=== PATIENT | female | born 1975 | race Caucasian/White ===

== ENCOUNTER 2019-06-26 06:43 | Day surgery (SDC) | payer MEDICAID ==
[2019-06-19 13:52] LABS: BASOPHILS # (AUTO) 0.1 X10'3 (0-0.2); EOSINOPHILS # (AUTO) 0.2 X10'3 (0-0.9); EOSINOPHILS % (AUTO) 2.9 % (0-6); LYMPHOCYTES % (AUTO) 27.7 % (21-51); MEAN CORPUSCULAR HEMOGLOBIN 30.7 PG (27.0-31.0); MEAN CORPUSCULAR HGB CONC 33.9 g/dL (33.0-36.5); MEAN CORPUSCULAR VOLUME 90.6 FL (78-98); MEAN PLATELET VOLUME 7.6 FL (7.4-10.4); MONOCYTES # (AUTO) 0.5 X10'3 (0-0.9); MONOCYTES % (AUTO) 6.5 % (2-12); NEUTROPHILS # (AUTO) 4.4 X10'3 (1.8-7.7); NEUTROPHILS % (AUTO) 61.9 % (42-75); PRE OP HEMATOCRIT 39.7 % (35.0-45.0); PRE OP HEMOGLOBIN 13.5 g/dL (12.0-16.0); PRE OP PLATELET COUNT 281 X10'3 (140-440); RED BLOOD COUNT 4.39 X10'6 (4.20-5.60); RED CELL DISTRIBUTION WIDTH 14.3 % (11.5-14.5)
[2019-06-19 14:07] LABS: ALBUMIN 3.9 G/DL (3.4-5.0); ALKALINE PHOSPHATASE 67 IU/L (46-116); BLOOD UREA NITROGEN 17 MG/DL (7-18); BUN/CREATININE RATIO 15.2 (6.6-38.0); CALCIUM 9.1 MG/DL (8.5-10.1); CHLORIDE 108 MMOL/L (99-107); CREATININE 1.12 MG/DL (0.40-0.90); PRE OP ALT 34 U/L (30-65); PRE OP ANION GAP 14 (8-16); PRE OP AST 24 U/L (10-37); PRE OP BILIRUB, TOTAL 0.2 MG/DL (0.0-1.0); PRE OP GLUCOSE 120 MG/DL (70-104); PRE OP POTASSIUM 3.6 MMOL/L (3.4-5.1); PRE OP SODIUM 143 MMOL/L (135-145); eGFR 53 ML/MIN
[~2019-06-26] VITALS: Ht 154.9 cm; Wt 82.3 kg
[~2019-06-26 06:43] MED LIST: CLOZ100T PO; CLOZ100T31 PO; FENO134C PO; FLUO20CA39 PO; HYDR-3686 PO; LEVO75TA PO; PRAM0.253 PO; SIMV20TA5 PO; TOP100T PO; albuterol 2.5 MG/3 ML nebule NEB ONE; cefazolin/dext.iso 2gm/50ml 50 ML IV ONE; famotidine 20mg tablet PO ONE; ringers solution, lacted 1,000 ML IV SCH
[2019-06-26 06:50] VITALS: BP 111/76
[2019-06-26] MEDS ORDERED: LIDOcaine 0.5% (5mg/ml) 50ml vial ONE (07:12)
[2019-06-26] MEDS ORDERED: ringers solution, lacted 1,000 ML IV SCH (07:48)
[2019-06-26] MEDS ORDERED: proCHLORperazine 10 MG/2 ml inj IV PRN (07:50)
[2019-06-26] MEDS ORDERED: ondansetron/PF 4mg/2ml inj IV PRN (07:50)
[2019-06-26] MEDS ORDERED: morphine 4 MG/ML inj SYRINge IV PRN ×2 (07:50)
[2019-06-26] MEDS ORDERED: meperidine/PF 25mg/ml syringe IV PRN ×3 (07:50)
[2019-06-26] MEDS ORDERED: midazolam 2 mg/2 ml injection ONE ×2 (09:25→09:26)
[2019-06-26] MEDS ORDERED: fentaNYL/PF 50MCG/1 ML 2ML syringe ONE (09:26)
[2019-06-26] MEDS ORDERED: propofol 10mg/ml 20ml vial IV ONE (09:28)
[2019-06-26] MEDS ORDERED: BUPIVAcaine/PF 2.5mg/ml (0.25%) 10ml vial ONE (09:33)
[2019-06-26 10:03] VITALS: BP 100/49
--- NOTE | 2019-06-26 10:03 | NUR ---
Received from OR via , accompanied by Anesthesiologist DR JORDAN and report given by Anesthesiolgist. AWAKENS TO VOICE. VITALS STABLE, DRESSING DI. APRIL PAIN. FINGERS WARM AND PINK.
[2019-06-26 10:13] VITALS: BP 120/81
[2019-06-26 10:23] VITALS: BP 112/77
[2019-06-26 10:33] VITALS: BP 118/74
--- NOTE | 2019-06-26 10:33 | NUR ---
AWAKE AND ORIENTED. VITALS STABLE. DRESSING DI. APRIL PAIN. HOME WITH A FRIEND AT THIS TIME.
== END 2019-06-26 10:33 | disposition home or self-care (01) ==
LOC: PAS 06:43
PROVIDERS: ATTEND Orthopaedic Surgery Hand Surgery
PROC: 01N54ZZ Release Median Nerve, Percutaneous Endoscopic Approach (ICD-10-PCS; 2019-06-26)
PROC: 0RBS0ZZ Excision of Right Carpometacarpal Joint, Open Approach (ICD-10-PCS; principal; 2019-06-26 09:28)
DX: G56.01 Carpal tunnel syndrome, right upper limb (principal); M67.431 Ganglion, right wrist; M25.731 Osteophyte, right wrist
CPT/HCPCS: 26160; 29848; 36415; 80053; 85025; J2001; J2250; J2704; J3010; J3490; A4215; A4615; A6449; A7000; J7120

== ENCOUNTER 2019-07-24 07:27 | Day surgery (SDC) | payer MEDICAID ==
[~2019-07-24] VITALS: Ht 154.9 cm; Wt 81.6 kg
[~2019-07-24 07:27] MED LIST changes: +SIMV-42 PO; -SIMV20TA5 PO; -albuterol 2.5 MG/3 ML nebule NEB ONE; -famotidine 20mg tablet PO ONE; -ringers solution, lacted 1,000 ML IV SCH
[2019-07-24] MEDS ORDERED: LIDOcaine 0.5% (5mg/ml) 50ml vial ONE (07:30)
[2019-07-24 07:40] VITALS: BP 117/77
[2019-07-24] MEDS ORDERED: ringers solution, lacted 1,000 ML IV SCH (08:15)
[2019-07-24] MEDS ORDERED: cefazolin/dext.iso 2gm/100 ML IV ONE (08:15)
[2019-07-24] MEDS ORDERED: famotidine 20mg tablet PO ONE (08:15)
[2019-07-24 08:51] LABS: ALKALINE PHOSPHATASE 64 IU/L (46-116); BLOOD UREA NITROGEN 20 MG/DL (7-18); BUN/CREATININE RATIO 20.6 (6.6-38.0); CHLORIDE 109 MMOL/L (99-107); CREATININE 0.97 MG/DL (0.40-0.90); PRE OP ALT 31 U/L (30-65); PRE OP ANION GAP 11 (8-16); PRE OP AST 27 U/L (10-37); PRE OP BILIRUB, TOTAL 0.2 MG/DL (0.0-1.0); PRE OP GLUCOSE 107 MG/DL (70-104); PRE OP SODIUM 140 MMOL/L (135-145); TOTAL CARBON DIOXIDE 19.6 MMOL/L (24-32); TOTAL PROTEIN 8.1 G/DL (6.4-8.2); eGFR 63 ML/MIN
[2019-07-24] MEDS ORDERED: fentaNYL/PF 50MCG/1 ML 2ML syringe ONE (09:25)
[2019-07-24] MEDS ORDERED: midazolam 2 mg/2 ml injection ONE ×2 (09:26→10:22)
[2019-07-24] MEDS ORDERED: BUPIVAcaine/PF 2.5 mg/ml (0.25%) 30ml vial ONE (09:55)
[2019-07-24 10:17] LABS: PRE OP INR 0.9 INR; PRE OP PROTIME 9.7 SECONDS (9.0-12.0)
[2019-07-24 10:46] VITALS: BP 130/78
--- NOTE | 2019-07-24 10:46 | NUR ---
Received from OR via [facility] , accompanied by Anesthesiologist HERBERTH and report given by Anesthesiolgist. PATIENT WITH 20G PIV IN RIGHT UE RUNNING LR AT 100. DENIES PAIN. MOVES ALL FINGERS ON LEFT UE. SPLINT IS CDI. VSS. Addendum: 07/24/19 at 1055 by Sudheer Griffith RN, RN Amended: Links added.
[2019-07-24 10:56] VITALS: BP 125/76
[2019-07-24 11:06] VITALS: BP 110/62
--- NOTE | 2019-07-24 11:16 | NUR ---
ALL DC CRITERIA HAS BEEN MET. IV TAKEN OUT WITHOUT COMPLICATIONS. ALL INSTRUCTIONS COVERED AND ALL QUESTIONS ANSWERED. DRESSINGS CDI. OUT VIA WHEELCHAIR TO PERSONAL VEHICLE WHERE PATIENT WAS SECURED IN AND DRIVEN HOME BY FAMILY. PATIENT EAT, DRANK AND DRESSED HERSELF INDEPENDENTLY. ALL CRITERIA HAS BEEN MET FOR DC. Addendum: 07/24/19 at 1121 by Sudheer Griffith RN, RN Amended: Links added.
== END 2019-07-24 11:16 | disposition home or self-care (01) ==
LOC: PAS 07:27 → EDUNIT# 10:15 → PAS 11:16
PROVIDERS: ATTEND Orthopaedic Surgery Hand Surgery
DX: G56.02 Carpal tunnel syndrome, left upper limb (principal); M25.732 Osteophyte, left wrist; F32.9 Major depressive disorder, single episode, unspecified; F41.9 Anxiety disorder, unspecified; F43.10 Post-traumatic stress disorder, unspecified; E03.9 Hypothyroidism, unspecified; E66.9 Obesity, unspecified; Z68.34 Body mass index [BMI] 34.0-34.9, adult; Z86.19 Personal history of other infectious and parasitic diseases; Z90.710 Acquired absence of both cervix and uterus; Z87.891 Personal history of nicotine dependence; Z88.8 Allergy status to other drugs, medicaments and biological substances; Z79.899 Other long term (current) drug therapy; Z98.890 Other specified postprocedural states; Z79.01 Long term (current) use of anticoagulants
CPT/HCPCS: 25130; 29848; 36415; 80053; 85610; 85730; A6222; J2001; J2250; J3010; J3490; 93005; A4215; A6449; J7120

== ENCOUNTER 2020-11-08 07:52 | Inpatient (IN) | payer MEDICAID ==
[2020-11-02 16:47] LABS: MEAN CORPUSCULAR HEMOGLOBIN 32.4 PG (27.0-31.0); MEAN CORPUSCULAR VOLUME 93.7 FL (78-98)
[2020-11-02 16:48] LABS: BASOPHILS # (AUTO) 0.1 X10'3 (0-0.2); BASOPHILS % (AUTO) 0.8 % (0-1); EOSINOPHILS # (AUTO) 0.2 X10'3 (0-0.9); EOSINOPHILS % (AUTO) 3.1 % (0-6); LYMPHOCYTES # (AUTO) 2.1 X10'3 (1.1-4.8); LYMPHOCYTES % (AUTO) 30.2 % (21-51); MEAN CORPUSCULAR HGB CONC 34.6 g/dL (33.0-36.5); MEAN PLATELET VOLUME 8.3 FL (7.4-10.4); MONOCYTES # (AUTO) 0.6 X10'3 (0-0.9); MONOCYTES % (AUTO) 8.5 % (2-12); NEUTROPHILS % (AUTO) 57.4 % (42-75); PRE OP HEMATOCRIT 37.9 % (35.0-45.0); PRE OP HEMOGLOBIN 13.1 g/dL (12.0-16.0); PRE OP PLATELET COUNT 258 X10'3 (140-440); RED BLOOD COUNT 4.04 X10'6 (4.20-5.60); RED CELL DISTRIBUTION WIDTH 13.7 % (11.5-14.5)
[2020-11-02 17:08] LABS: ALBUMIN 3.9 G/DL (3.4-5.0); ALBUMIN/GLOBULIN RATIO 1.1 (1.1-1.5); ALKALINE PHOSPHATASE 92 IU/L (46-116); BLOOD UREA NITROGEN 16 MG/DL (7-18); BUN/CREATININE RATIO 16.3 (6.6-38.0); CALCIUM 9.3 MG/DL (8.5-10.1); CHLORIDE 106 MMOL/L (99-107); CREATININE 0.98 MG/DL (0.40-0.90); PRE OP ALT 49 U/L (30-65); PRE OP ANION GAP 14 (8-16); PRE OP AST 29 U/L (10-37); PRE OP BILIRUB, TOTAL 0.2 MG/DL (0.0-1.0); PRE OP POTASSIUM 3.5 MMOL/L (3.4-5.1); PRE OP SODIUM 141 MMOL/L (135-145); TOTAL CARBON DIOXIDE 20.8 MMOL/L (24-32); TOTAL PROTEIN 7.5 G/DL (6.4-8.2); eGFR 62 ML/MIN
[2020-11-02 17:10] LABS: PRE OP GLUCOSE 123 MG/DL (70-104)
[~2020-11-08] VITALS: Ht 154.9 cm; Wt 92.1 kg
[2020-11-08] VITALS (25 sets, daily range): BP systolic 97–131; BP diastolic 53–88
[~2020-11-08 07:52] MED LIST changes: +DICL50TA8 PO; -HYDR-3686 PO; +HYDR-3965 PO; -PRAM0.253 PO; +ceFAZolin 2gm in dextrose, iso 50 ML IV ONE; -cefazolin/dext.iso 2gm/50ml 50 ML IV ONE; +famotidine 20mg tablet PO ONE; +ringers solution, lacted 1,000 ML IV SCH; +tranexamic acid 650mg tablet PO ONE; +vancomycin 1,500 MG in NS 300ml IV soln IV ONE
[2020-11-08] MEDS ORDERED: LIDOcaine 1% (10mg/ml) 2ml vial ONE (08:22)
[2020-11-08] MEDS ORDERED: hydrOXYzine 25 MG tablet PO ONE (12:05)
[2020-11-08] MEDS ORDERED: ROPIVAcaine inj 200 MG in normal saline 100ml IV soln 60 ML IU ONE (12:35)
[2020-11-08] MEDS ORDERED: sevoflurane 250ml liquid IH ONE (13:25)
[2020-11-08] MEDS ORDERED: fentaNYL/PF 50MCG/1 ML 2ML syringe ONE (13:38)
[2020-11-08] MEDS ORDERED: propofol inj 20 ML IV ONE (13:48)
[2020-11-08] MEDS ORDERED: diphenhydrAMINE 50 mg/ml inj ONE (13:48)
[2020-11-08] MEDS ORDERED: ROPIVAcaine 0.5% (5mg/ml) 30ml vial IJ ONE (14:49)
[2020-11-08] MEDS ORDERED: gelatin sponge, absorbable (Gelfoam 100) sponge TP ONE ×2 (15:33→15:34)
[2020-11-08] MEDS ORDERED: ROPIVAcaine 0.5% (5mg/ml) 30ml vial ONE (15:38)
[2020-11-08] MEDS ORDERED: albumin (Human) 5% 250ml 250 ML IV ONE (15:39)
[2020-11-08] MEDS ORDERED: bisacodyl 10mg suppository rectal RC PRN (16:20)
[2020-11-08] MEDS ORDERED: magnesium hydroxide 30ml (MOM) UD suspension PO PRN (16:20)
[2020-11-08] MEDS ORDERED: diphenhydrAMINE 25mg capsule PO PRN ×2 (16:20)
[2020-11-08] MEDS ORDERED: acetaminophen 325mg tablet PO PRN (16:20)
[2020-11-08] MEDS ORDERED: oxyCODONE IR 5mg (immed. release) tablet PO PRN (16:20)
[2020-11-08] MEDS ORDERED: HYDROcodone/acetaminophen 5mg/325mg tablet PO PRN (16:20)
[2020-11-08] MEDS ORDERED: HYDROmorphone inj. 0.5 MG/0.5 ML DISP.SYRIN IV PRN (16:20)
[2020-11-08] MEDS ORDERED: ondansetron/PF 4mg/2ml inj IV PRN ×2 (16:20→17:55)
--- NOTE | 2020-11-08 16:55 | NUR ---
Received from OR via , accompanied by Anesthesiologist DR MELLO and report given by Anesthesiolgist. PT IS SLEEPING BUT WAKES TO VOICE. SKIN WARM AND PINK, VSS, MOVES EXT X 4, DOPPLE PEDAL PULSES, DRESSING TO LEFT KNEE CD, POWDER ICE PACK TO LEFT KNEE, SCD'S, PIV LEFT FA 18G PATENT WITH LR 100ML/HR, WAITING FOR PHARMACY TO BRING UP ON Q PAIN BALL, ESPINAL TO GRAVITY, CLEAR YELLOW.
[2020-11-08] MEDS ORDERED: morphine 4 MG/ML inj SYRINge ONE (17:52)
[2020-11-08] MEDS ORDERED: morphine 2 MG/ML inj. syringe IV PRN (17:55)
[2020-11-08] MEDS ORDERED: ringers solution, lacted 1,000 ML IV SCH (17:55)
[2020-11-08] MEDS ORDERED: proCHLORperazine 10 MG/2 ml inj IV PRN (17:55)
[2020-11-08] MEDS ORDERED: ROPIVAcaine 0.2% (10 MG/5 ML) BOLUS INJECTION ADDCANAL PRN (17:55)
[2020-11-08] MEDS ORDERED: meperidine/PF 25mg/ml syringe IV PRN ×3 (17:55)
--- NOTE | 2020-11-08 17:55 | NUR ---
HAD TO OVERIDE MORPHINE FOR C/O SEVERE PAIN. PAIN MEDICATIONS HAD NOT BEEN ENTERED BY ANESTHESIA. CALLED DR MELLO AND OKAYED OVER RIDE. DR MELLO THEN PLACED PAIN MEDICATIONS IN EMAR.
[2020-11-08] MEDS: morphine 4 MG/ML inj SYRINge IV PRN ×2 (18:17→18:56)
[2020-11-08] MEDS: ROPIVAcaine 0.2%/PF PUMP/bolus 550 ML ADDCANAL SCH (18:18)
--- NOTE | 2020-11-08 18:20 | NUR ---
REPORT GIVEN AND CARE TRANSFERRED TO VAHE ISRAEL.
--- NOTE | 2020-11-08 19:10 | NUR ---
PATIENT A&OX4, PAINFUL 8/10 PER PT, PT IS ABLE TO FEEL SENSATIONS IN AFFECTED LEG IN SPITE OF BLOCK-ANESTHESIA AWARE, ON-Q PUMP HAS BEEN INCREASED AND BOLUSES GIVEN TO ATTEMPT TO HELP WITH PAIN, ALSO HAVE BEEN GIVEN 4MG MORPHINE DOSES X 3, PEDAL PULSES WERE FOUND VIA DOPPLER IN HER TIBIAL AREA, TOES PINK, WARM AND + FOR SENSATION, V/S WNL, PIV 20G TO L FA-LR RUNNING, PT GIVEN JUICE AND CRACKERS WHILE IN RECOVERY, NEUROVASCULAR CHECKS INTACT, , DRESSING TO LEFT KNEE W/ COLD POWDER PACK ,SCD ON. F/C DRAINING CLEAR YELLOW URINE. PATIENT TAKEN TO RM 4023A WITH ALL BELONGINGS AND HOOKED UP TO MONITORS IN ROOM AND REPORT GIVEN TO [employer]YWOOD PATCHER DECEMBER WHO HAS TAKEN OVER PATIENT CARE. BED LOW, CALL LIGHT PRESENT AND VSS.
[2020-11-08] MEDS ORDERED: topiramate 100mg tablet PO SCH (20:00)
[2020-11-08] MEDS ORDERED: vancomycin/NS 1 GM ADD-VANTAGE 250 ML IV SCH (20:00)
[2020-11-08] MEDS: DICLOFENAC 50 MG PO SCH (20:00)
[2020-11-08 20:21] LABS: BASOPHILS % (AUTO) 0.3 % (0-1); EOSINOPHILS % (AUTO) 0.4 % (0-6); HEMATOCRIT 34.1 % (35.0-45.0); HEMOGLOBIN 11.6 g/dl (12.0-16.0); LYMPHOCYTES # (AUTO) 0.6 X10'3 (1.1-4.8); LYMPHOCYTES % (AUTO) 5.9 % (21-51); MEAN CORPUSCULAR HEMOGLOBIN 32.5 PG (27.0-31.0); MEAN CORPUSCULAR VOLUME 95.6 FL (78-98); MEAN PLATELET VOLUME 7.8 FL (7.4-10.4); MONOCYTES # (AUTO) 0.1 X10'3 (0-0.9); MONOCYTES % (AUTO) 1.2 % (2-12); NEUTROPHILS # (AUTO) 9.9 X10'3 (1.8-7.7); NEUTROPHILS % (AUTO) 92.2 % (42-75); PLATELET COUNT 185 X10'3 (140-440); RED BLOOD COUNT 3.57 X10'6 (4.20-5.60); RED CELL DISTRIBUTION WIDTH 14.2 % (11.5-14.5); WHITE BLOOD COUNT 10.7 X10'3 (4.5-11.0)
[2020-11-08] MEDS: topiramate 100mg tablet PO SCH (20:44)
[2020-11-08] MEDS: acetaminophen 325mg tablet PO SCH (20:44)
[2020-11-08] MEDS: sennosides 8.6mg tablet PO SCH (20:47)
[2020-11-08] MEDS: atorvastatin 10mg tablet PO SCH (20:47)
[2020-11-08] MEDS: potassium cl 20mEq in 1/2 NS 1,000 ML IV SCH (21:00)
[2020-11-08] MEDS: oxyCODONE IR 5mg (immed. release) tablet PO PRN (21:56)
[2020-11-08] MEDS: clozapine 100mg tablet PO SCH (21:57)
[2020-11-08] MEDS: ceFAZolin/D5W- 1GM premix 50 ML IV SCH (23:35)
[2020-11-09] MEDS: potassium cl 20mEq in 1/2 NS 1,000 ML IV SCH ×3 (00:20→16:20)
[2020-11-09 02:00] VITALS: BP 105/61
[2020-11-09] MEDS: acetaminophen 325mg tablet PO SCH ×4 (02:00→21:12)
[2020-11-09] MEDS: oxyCODONE IR 5mg (immed. release) tablet PO PRN ×2 (05:30→09:41)
--- NOTE | 2020-11-09 06:24 | NUR ---
Received report from Jayshree RN
[2020-11-09 06:49] VITALS: BP 102/68
[2020-11-09 07:46] LABS: BASOPHILS % (AUTO) 0.1 % (0-1); EOSINOPHILS % (AUTO) 0 % (0-6); HEMATOCRIT 32.3 % (35.0-45.0); HEMOGLOBIN 10.8 g/dl (12.0-16.0); LYMPHOCYTES # (AUTO) 0.9 X10'3 (1.1-4.8); LYMPHOCYTES % (AUTO) 7.5 % (21-51); MEAN CORPUSCULAR HEMOGLOBIN 32.2 PG (27.0-31.0); MEAN CORPUSCULAR HGB CONC 33.4 g/dL (33.0-36.5); MEAN CORPUSCULAR VOLUME 96.6 FL (78-98); MEAN PLATELET VOLUME 8.2 FL (7.4-10.4); MONOCYTES # (AUTO) 0.5 X10'3 (0-0.9); MONOCYTES % (AUTO) 4.4 % (2-12); NEUTROPHILS # (AUTO) 10.2 X10'3 (1.8-7.7); PLATELET COUNT 202 X10'3 (140-440); RED BLOOD COUNT 3.35 X10'6 (4.20-5.60); RED CELL DISTRIBUTION WIDTH 14.1 % (11.5-14.5); WHITE BLOOD COUNT 11.6 X10'3 (4.5-11.0)
[2020-11-09] MEDS: DICLOFENAC 50 MG PO SCH ×2 (08:00→20:00)
[2020-11-09] MEDS ORDERED: levoTHYROXINE 75mcg tablet PO SCH (08:00)
[2020-11-09 08:01] LABS: ANION GAP 12 (8-16); CHLORIDE 109 MMOL/L (99-107); POTASSIUM 3.8 MMOL/L (3.5-5.1); SODIUM 139 MMOL/L (135-145); TOTAL CARBON DIOXIDE 18.3 MMOL/L (24-32)
[2020-11-09] MEDS: FLUoxetine 20mg capsule PO SCH (09:06)
[2020-11-09] MEDS: fenofibrate 145mg tablet PO SCH (09:07)
[2020-11-09] MEDS: aspirin 325mg tablet PO SCH (09:09)
[2020-11-09] MEDS: clozapine 100mg tablet PO SCH ×2 (09:09→21:12)
[2020-11-09] MEDS: ceFAZolin/D5W- 1GM premix 50 ML IV SCH (09:12)
[2020-11-09] MEDS: topiramate 100mg tablet PO SCH ×2 (09:12→21:11)
--- NOTE | 2020-11-09 09:15 | NUR ---
Medications reviewed, dispensed, administered, and documented appropriately by Gaurav SANCHEZ.
[2020-11-09 10:00] VITALS: BP 133/85
--- NOTE | 2020-11-09 10:30 | NUR ---
Joint Replacement Consult: Pt seen by RIYA for written/verbal high protein ed w/ RD contact information provided. Pt reports good appetite requesting double proteins TIDWM for satiety; dietary notified. Addendum: 11/09/20 at [address] Amended: Links added.
[2020-11-09] MEDS ORDERED: oxyCODONE IR 5mg (immed. release) tablet PO PRN (11:20)
[2020-11-09] MEDS: HYDROmorphone 1 mg/ml syringe IV PRN ×3 (12:13→22:15)
[2020-11-09 18:00] VITALS: BP 124/73
--- NOTE | 2020-11-09 18:03 | NUR ---
Report given to Princess ISRAEL
--- NOTE | 2020-11-09 19:50 | NUR ---
Patient in room ORTHO 4024. I have received report from Princess ISRAEL and had the opportunity to ask questions and assume patient care.
[2020-11-09] MEDS: sennosides 8.6mg tablet PO SCH (21:10)
[2020-11-09] MEDS: atorvastatin 10mg tablet PO SCH (21:10)
[2020-11-09 22:00] VITALS: BP 109/66
[2020-11-10] MEDS: potassium cl 20mEq in 1/2 NS 1,000 ML IV SCH ×2 (00:20→07:56)
[2020-11-10] MEDS: acetaminophen 325mg tablet PO SCH ×3 (01:07→14:00)
[2020-11-10] MEDS: ROPIVAcaine 0.2%/PF PUMP/bolus 550 ML ADDCANAL SCH (01:08)
[2020-11-10] MEDS: oxyCODONE IR 5mg (immed. release) tablet PO PRN ×5 (01:08→19:14)
[2020-11-10 02:00] VITALS: BP 109/68
[2020-11-10 06:00] VITALS: BP 117/71
--- NOTE | 2020-11-10 06:00 | NUR ---
Patient in room ORTHO 4024. I have received report from Roxanna and had the opportunity to ask questions and assume patient care.
--- NOTE | 2020-11-10 06:27 | NUR ---
Problems reprioritized. Patient report given, questions answered & plan of care reviewed with Kamille ISRAEL.
[2020-11-10 07:38] LABS: BASOPHILS % (AUTO) 0.3 % (0-1); EOSINOPHILS # (AUTO) 0.2 X10'3 (0-0.9); EOSINOPHILS % (AUTO) 2.2 % (0-6); HEMATOCRIT 28.8 % (35.0-45.0); HEMOGLOBIN 9.7 g/dl (12.0-16.0); LYMPHOCYTES # (AUTO) 1.7 X10'3 (1.1-4.8); LYMPHOCYTES % (AUTO) 18.1 % (21-51); MEAN CORPUSCULAR HEMOGLOBIN 32.5 PG (27.0-31.0); MEAN CORPUSCULAR HGB CONC 33.6 g/dL (33.0-36.5); MEAN CORPUSCULAR VOLUME 96.7 FL (78-98); MEAN PLATELET VOLUME 8.2 FL (7.4-10.4); MONOCYTES # (AUTO) 0.8 X10'3 (0-0.9); MONOCYTES % (AUTO) 8.6 % (2-12); NEUTROPHILS # (AUTO) 6.8 X10'3 (1.8-7.7); NEUTROPHILS % (AUTO) 70.8 % (42-75); PLATELET COUNT 175 X10'3 (140-440); RED BLOOD COUNT 2.98 X10'6 (4.20-5.60); WHITE BLOOD COUNT 9.6 X10'3 (4.5-11.0)
[2020-11-10] MEDS: topiramate 100mg tablet PO SCH ×2 (07:46→20:56)
[2020-11-10] MEDS: aspirin 325mg tablet PO SCH (07:47)
[2020-11-10] MEDS: fenofibrate 145mg tablet PO SCH (07:47)
[2020-11-10] MEDS: levoTHYROXINE 100mcg tablet PO SCH (07:47)
[2020-11-10] MEDS: FLUoxetine 20mg capsule PO SCH (07:47)
[2020-11-10] MEDS: DICLOFENAC 50 MG PO SCH ×2 (07:54→20:00)
[2020-11-10] MEDS: clozapine 100mg tablet PO SCH ×2 (08:59→20:57)
[2020-11-10 10:00] VITALS: BP 115/73
[2020-11-10] MEDS ORDERED: acetaminophen 325mg tablet PO PRN (16:20)
[2020-11-10 18:00] VITALS: BP 115/69
--- NOTE | 2020-11-10 18:55 | NUR ---
Patient in room ORTHO 4024. I have received report from Kamille ISRAEL and had the opportunity to ask questions and assume patient care.
[2020-11-10] MEDS: atorvastatin 10mg tablet PO SCH (20:56)
[2020-11-10] MEDS: sennosides 8.6mg tablet PO SCH (20:56)
[2020-11-10 22:00] VITALS: BP 116/67
[2020-11-11] MEDS: oxyCODONE IR 5mg (immed. release) tablet PO PRN ×2 (05:17→10:45)
[2020-11-11 06:00] VITALS: BP 100/54
--- NOTE | 2020-11-11 06:30 | NUR ---
Problems reprioritized. Patient report given, questions answered & plan of care reviewed with Rosalind ISRAEL.
--- NOTE | 2020-11-11 06:51 | NUR ---
Patient in room ORTHO 4024. I have received report from LINDY Mcknight and had the opportunity to ask questions and assume patient care.
[2020-11-11] MEDS: levoTHYROXINE 100mcg tablet PO SCH (07:19)
[2020-11-11] MEDS: clozapine 100mg tablet PO SCH (07:19)
[2020-11-11] MEDS: FLUoxetine 20mg capsule PO SCH (07:19)
[2020-11-11] MEDS: topiramate 100mg tablet PO SCH (07:20)
[2020-11-11] MEDS: fenofibrate 145mg tablet PO SCH (07:20)
[2020-11-11] MEDS: DICLOFENAC 50 MG PO SCH (08:00)
[2020-11-11] MEDS: aspirin 325mg tablet PO SCH (08:37)
[2020-11-11 08:41] LABS: BASOPHILS % (AUTO) 0.4 % (0-1); EOSINOPHILS # (AUTO) 0.2 X10'3 (0-0.9); EOSINOPHILS % (AUTO) 1.8 % (0-6); HEMATOCRIT 31.1 % (35.0-45.0); HEMOGLOBIN 10.5 g/dl (12.0-16.0); LYMPHOCYTES # (AUTO) 1.6 X10'3 (1.1-4.8); LYMPHOCYTES % (AUTO) 15.5 % (21-51); MEAN CORPUSCULAR HEMOGLOBIN 32.5 PG (27.0-31.0); MEAN CORPUSCULAR HGB CONC 33.8 g/dL (33.0-36.5); MEAN CORPUSCULAR VOLUME 96.2 FL (78-98); MEAN PLATELET VOLUME 8.1 FL (7.4-10.4); MONOCYTES # (AUTO) 0.8 X10'3 (0-0.9); NEUTROPHILS # (AUTO) 7.8 X10'3 (1.8-7.7); NEUTROPHILS % (AUTO) 74.3 % (42-75); PLATELET COUNT 198 X10'3 (140-440); RED BLOOD COUNT 3.24 X10'6 (4.20-5.60); RED CELL DISTRIBUTION WIDTH 13.8 % (11.5-14.5); WHITE BLOOD COUNT 10.5 X10'3 (4.5-11.0)
[2020-11-11] MEDS ORDERED: ASPI-1 PO (12:06)
[2020-11-11] MEDS ORDERED: SENN-173 PO (12:06)
[2020-11-11] MEDS ORDERED: OXYC10TA47 PO (16:01)
[2020-11-11] MEDS ORDERED: LEVO200T8 PO (16:01)
== END 2020-11-11 12:50 | disposition home or self-care (01) | DRG 302 ==
LOC: UNDOADMIN 07:52 → PAS IN 07:52 → EDSTATUS 11:15 → PAS IN 16:18 → ORTHO 4S 19:20 → PAS IN 19:20
PROVIDERS: ADMIT Orthopaedic Surgery; ATTEND Orthopaedic Surgery
PROC: 8E0Y0CZ Robotic Assisted Procedure of Lower Extremity, Open Approach (ICD-10-PCS; 2020-11-08)
PROC: 0SRD069 Replacement of Left Knee Joint with Oxidized Zirconium on Polyethylene Synthetic Substitute, Cemented, Open Approach (ICD-10-PCS; principal; 2020-11-08 13:25)
DX: M17.12 Unilateral primary osteoarthritis, left knee (principal); M25.562 Pain in left knee; D50.0 Iron deficiency anemia secondary to blood loss (chronic); E03.9 Hypothyroidism, unspecified; Z20.822 Contact with and (suspected) exposure to COVID-19; Z88.8 Allergy status to other drugs, medicaments and biological substances
CPT/HCPCS: 36415; 80051; 80053; 82948; 84443; 85025; 87081; 87635; 93005; 97110; 97116; 97161; 97530; A4215; A6258; A7000; C1713; C1758; C1776; G0378; J0690; J1170; J1200; J2001; J2270; J2704; J2795; J3010; J3370; J3480; J7040; J7120; P9045; Q0177